=== PATIENT | male | born 1960 | race Caucasian/White ===

== ENCOUNTER 2020-04-16 14:11 | Emergency (ER) | payer BC, SELFPAY ==
[2020-04-16 14:58] VITALS: BP 160/90; PULSE 80; RESP 16; TEMP 36.8; O2SAT 98
--- NOTE | 2020-04-16 15:44 | ED_ITS ---
HPI - General Adult General Chief complaint: Skin/Abscess/Foreign Body Stated complaint: WOUND ON R FOREARM Time Seen by Provider: 04/16/20 15:15 Related Data Allergies Allergy/AdvReac Type Severity Reaction Status Date / Time AMOXICILLIN TRIHYDRATE Allergy Unknown ITCHING Uncoded 07/26/16 13:14 Review of Systems Review of Systems: All systems reviewed & are unremarkable except as noted in HPI and below Exam Narrative: Exam Narrative: GENERAL: Well-appearing, well-nourished, and in no acute distress. HEAD: Normocephalic, atraumatic. EYES: PERRLA and EOMI. EXTREMITIES: Normal range of motion. No edema. SKIN: Warm, dry, no rash. Pedunculated 1 cm lesion to the right forearm with central ulceration NEURO: No focal deficits. Alert and oriented x3. Neurovascularly intact PSYCH: Normal mood and affect. Course Course Emergency Course: Patient with skin lesion to the right forearm concerning for squamous cell carcinoma will be referred to dermatology plastic surgery and primary care for discussion of biopsy and excision Vital Signs Vital signs: Vital Signs Temperature 98.3 F 04/16/20 14:58 Pulse Rate 80 04/16/20 14:58 Respiratory Rate 16 04/16/20 14:58 Blood Pressure 160/90 H 04/16/20 14:58 Pulse Oximetry 98 04/16/20 14:58 Temperature 98.3 F 04/16/20 14:58 Pulse Rate 80 04/16/20 14:58 Respiratory Rate 16 04/16/20 14:58 Blood Pressure 160/90 H 04/16/20 14:58 Pulse Oximetry 98 04/16/20 14:58 Medical Decision Making MDM Narrative Medical decision making narrative: Patient with skin lesion will be referred to plastic surgery for discussion of biopsy to rule out cancer Vital Signs Vital Signs: Vital Signs Temperature 98.3 F 04/16/20 14:58 Pulse Rate 80 04/16/20 14:58 Respiratory Rate 16 04/16/20 14:58 Blood Pressure 160/90 H 04/16/20 14:58 Pulse Oximetry 98 04/16/20 14:58 Temperature 98.3 F 04/16/20 14:58 Pulse Rate 80 04/16/20 14:58 Respiratory Rate 16 04/16/20 14:58 Blood Pressure 160/90 H 04/16/20 14:58 Pulse Oximetry 98 04/16/20 14:58 Discharge Plan Discharge Clinical Impression: Wound, open, arm, forearm Patient Disposition: Home, Self-Care Condition: Stable Instructions: Antibiotic Form Additional Instructions: Follow-up with primary care and dermatology by phone first thing tomorrow to set up appointment for discussion of biopsy of the skin lesion on your forearm to rule out cancer as a cause Return if symptoms worsen or concerns or any increase in redness swelling pain or fever 100.5 Follow-up/Referrals: PHYSICIAN,JANITORIAL MAINTENANCE WORKER [Primary Care Provider] - Tristin Zabala MD [Physician] -
== END 2020-04-16 16:02 | disposition home or self-care (01) ==
PROVIDERS: Emergency Provider Emergency Medicine
DX: L98.9 Disorder of the skin and subcutaneous tissue, unspecified (principal)
CPT/HCPCS: 99282

== ENCOUNTER → 2020-04-24 15:30 | Outpatient (REF) | payer BC, SELFPAY | LOC: ANHLAB 15:30 | PROVIDERS: PCP Emergency Medicine; Visit Provider Nurse Practitioner | DX: D49.2 Neoplasm of unspecified behavior of bone, soft tissue, and skin (principal) | CPT/HCPCS: 88305 ==

== ENCOUNTER → 2020-06-16 09:11 | Outpatient (REF) | payer BC, SELFPAY | LOC: ANHLAB 09:11 | PROVIDERS: PCP Emergency Medicine; Visit Provider Nurse Practitioner | DX: C44.622 Squamous cell carcinoma of skin of right upper limb, including shoulder (principal) | CPT/HCPCS: 88305; 88331 ==

== ENCOUNTER 2020-09-09 23:03 | Emergency (ER) | payer SELFPAY ==
--- NOTE | ~2020-09-09 | CT_ITS ---
EXAMINATION: CT brain wo con INDICATION: Headache COMPARISON: 07/26/2016 TECHNIQUE: Standard unenhanced head CT. The dose-length product (DLP) was 681.00 mGy-cm. The mA was a djusted according to patient size. Iterative reconstruction technique was employed. FINDINGS: There is no intracranial hemorrhage, acute infarction, or abnormal mass lesion. The ventric les are normal. There is no abnormal mass effect or midline shift. The wright-white matter differentiat ion is normal. The basal cisterns are patent. Intracranial calcified cerebral atherosclerosis is note d. The orbits are normal. The paranasal sinuses, mastoids and calvarium are normal. IMPRESSION: 1. No acute intracranial abnormality. Reviewed, dictated and finalized at location [facility]. R BRICKLAYER
[2020-09-09 23:05] VITALS: BP 148/87; PULSE 72; RESP 16; TEMP 36.4; O2SAT 97
[2020-09-09 23:21] LABS: Basophils Absolute Auto 0.1 K/mm3 (0.0-0.1); Basophils Percent Auto 0.8 % (0.2-1.2); Eosinophils Absolute Auto 0.3 K/mm3 (0-0.3); Eosinophils Percent Auto 2.9 % (0-4.4); Hematocrit 45.6 % (42.0-52.0); Hemoglobin 15.4 g/dL (14.0-18.0); Immature Granulocyte Absolute 0.05 K/mm3 (0.00-0.031); Immature Granulocyte Percent A 0.5 % (0-0.5); Lymphocytes Absolute Auto 2.37 K/mm3 (0.9-3.2); Lymphocytes Percent Auto 25.8 % (18.3-44.2); Mean Corpuscular HGB Conc 33.8 g/dl (32-36); Mean Corpuscular Hemoglobin 35.1 pg (26-34); Mean Corpuscular Volume 103.9 fl (80-100); Mean Platelet Volume 9.9 fl (7.4-10.4); Monocytes Absolute Auto 0.8 K/mm3 (0.1-0.6); Neutrophils Absolute Auto 5.6 K/mm3 (1.3-6.7); Platelet Count Result 181 k/mm3 (150-375); Red Blood Count 4.39 M/mm3 (4.6-6.20); Red Cell Distribution Width 13.1 % (11.5-14.5); White Blood Count 9.2 K/mm3 (4.5-10.0)
[2020-09-09 23:34] LABS: Alanine Aminotransferase 20 U/L (4-50); Albumin Level 4.4 g/dL (3.5-5.1); Alkaline Phosphatase 86 U/L (38-126); Anion Gap 10 mmol/L (8-16); Aspartate Amino Transferase 31 U/L (17-59); Bilirubin,Total 0.2 mg/dL (0.2-1.3); Blood Urea Nitrogen 10 mg/dL (9-20); Calcium 9.2 mg/dL (8.4-10.2); Carbon Dioxide 22 mmol/L (22-30); Chloride 107 mmol/L (98-107); Estimated CRCL calculation 100 ml/min; Estimated Glomerular Filt Rate > 60; Glucose 103 mg/dL (75-110); Lipase 119 U/L (23-300); Potassium 3.8 mmol/L (3.4-5.0); Sodium 139 mmol/L (137-145)
[2020-09-10 00:31] VITALS: BP 154/95; PULSE 71; RESP 15; O2SAT 95
--- NOTE | 2020-09-10 00:40 | ED.DIZZY ---
HPI - Dizziness General Chief Complaint: Dizziness Stated Complaint: nausea and dizzy Time Seen by Provider: 09/10/20 00:29 History of Present Illness HPI Narrative: Dizziness since yesterday. Constant. Increasing in severity. Exacerbated by standing. Assovciated with nausea and vomiting. He says that he has had vertigo before and this is different. He also denies being light headed. He did have a few beers ealier, but this is not unusual. No weakness, numbness, confusion, CP, SOB. Related Data Home Medications Medication Instructions Recorded Confirmed lisinopril 20 mg tablet 20 mg PO DAILY tablet 04/24/20 Allergies Allergy/AdvReac Type Severity Reaction Status Date / Time AMOXICILLIN TRIHYDRATE Allergy Unknown ITCHING Uncoded 06/16/20 08:50 Review of Systems Constitutional: Constitutional: Denies chills, Denies fever(s) and Denies weakness Eyes: Eyes: Reports no additional eye complaints ENT: Reports dizziness and Denies sore throat Cardiovascular: Cardiovascular: Denies chest pain Respiratory: Respiratory: Denies dyspnea Gastrointestinal: Gastrointestinal: Denies abdominal pain, Denies diarrhea, Reports nausea and Reports vomiting Genitourinary: Genitourinary: Denies hematuria and Denies dysuria Musculoskeletal: Musculoskeletal: Denies back pain Neurologic: Reports dizziness and Denies syncope [facility] Past Medical History Medical History (Updated 09/10/20 @ 03:45 by Noé Dietrich MD) High blood pressure Squamous cell cancer of skin of right forearm Social History Social History Smoking status: Current every day smoker Tobacco type: cigarettes Alcohol intake: current Substance use: never Substance use type: does not use Exam Const: General: no acute distress and alert Nutritional Appearance: well nourished Orientation/consciousness: patient oriented x3 HENMT: Head: normal to inspection Ears: TM's normal bilaterally, EAC's normal and external ear abnormal Eyes: Conjunctivae: conjunctivae normal Pupils: Equal, round and reactive pupils present EOM: EOMs intact bilaterally Neck: Neck: normal visual inspection Resp: Effort & Inspection: normal respiratory effort Auscultation: clear to auscultation bilaterally, no rales, no rhonchi and no wheezes Cardio: Jugular venous distension: no JVD Rate: regular rate Rhythm: regular rhythm Heart sounds: no murmurs GI: Inspection: non-distended GI Palp: Yes Soft to palpation and No Tenderness to palpation present (GI) Skin: General skin exam: normal color Neuro: General: patient oriented x3, moves all extremities, no focal motor deficits and CN's II-XI intact bilaterally Cranial nerves: Yes Nystagmus present horizontal fast component to the right (mild) Speech: normal speech Gait exam (Neuro): Normal gait present Extrem: General: no edema Psych: Appearance: well kempt Affect: normal affect Course Vital Signs Vital signs: Vital Signs Temperature 36.4 C 09/09/20 23:05 Pulse Rate 72 09/09/20 23:05 Respiratory Rate 16 09/09/20 23:05 Blood Pressure 148/87 H 09/09/20 23:05 Pulse Oximetry 97 09/09/20 23:05 Temperature 36.4 C 09/09/20 23:05 Pulse Rate 104 H 09/10/20 02:46 Respiratory Rate 18 09/10/20 02:46 Blood Pressure 118/70 09/10/20 02:46 Pulse Oximetry 100 09/10/20 02:46 MDM - Dizziness Differential Diagnosis Differential diagnosis: Likely benign paroxysmal positional vertigo, cerebrovascular accident, transient cerebral ischemia and other (near syncope, orhtostatic hypotension) Medical Records Attestation: I reviewed the patient's medical records. Lab Data Attestation: I reviewed the patient's lab results. Result diagrams: 09/09/20 23:13 09/09/20 23:13 Labs: Lab Results 09/09/20 09/09/20 09/10/20 Range/Units 23:13 23:13 00:45 WBC 9.2 (4.5-10.0) K/mm3 RBC 4.39 L (4.6-6.20)
--- NOTE | 2020-09-10 00:48 | PC.NURSE ---
Pt to CT scan via stretcher.
[2020-09-10 00:58] LABS: Appearance Urine Clear (Clear); Bilirubin Urine Negative (Negative); Blood Urine Negative (Negative); Color Urine Yellow (Yellow); Glucose Urine UA Negative (Negative); Ketones Urine Trace mg/dL (Negative); Leukocyte Esterase Ur Negative LEU/UL (Negative); Nitrate Urine Negative (Negative); Protein Urine Negative (Negative); Specific Grav Ur 1.025 (1.001-1.035); Urobilinogen Urine 0.2 mg/dL (<2.0)
[2020-09-10 01:03] LABS: Bacteria Urine Trace /hpf; Mucus Urine Rare /lpf; RBC Urine 0-2 /hpf (0-2); Squamous Epithelial Cell Urine Rare /hpf (Few); WBC Urine 0-3 /hpf
[2020-09-10 01:05] LABS: Add Urine Microscopic? YES
[2020-09-10 01:10] VITALS: PULSE 64; RESP 19; O2SAT 95
[2020-09-10] MEDS: LORazepam INJ (*CRX) 2 MG/ML VIAL 0.5 MG IV PUSH (01:11)
[2020-09-10] MEDS: SODIUM CHLORIDE 0.9% IV 1,000 ML 999 ML IV CONT (01:11)
[2020-09-10] MEDS: ONDANSETRON INJ 4 MG/2 ML VIAL IV PUSH (01:11)
[2020-09-10 01:35] LABS: Ethanol < 10 mg/dL (<10)
[2020-09-10 01:54] VITALS: BP 137/79; PULSE 70; RESP 23; O2SAT 94
[2020-09-10 02:04] VITALS: BP 137/79; BP 148/83; PULSE 71; PULSE 75
[2020-09-10 02:05] VITALS: BP 135/85; PULSE 80
[2020-09-10 02:46] VITALS: BP 118/70; PULSE 104; RESP 18; O2SAT 100
== END 2020-09-10 02:47 | disposition home or self-care (01) ==
PROVIDERS: Emergency Medicine; Emergency Provider Emergency Medicine
DX: R42 Dizziness and giddiness (principal); I10 Essential (primary) hypertension; Z85.828 Personal history of other malignant neoplasm of skin
CPT/HCPCS: 36415; 70450; 80053; 80307; 81001; 83690; 85025; 96361; 96374; 96375; 99284; J2060; J2405; J7030

== ENCOUNTER → 2022-01-05 13:16 | Outpatient (REF) | payer BC, SELFPAY | LOC: ANHLAB 13:16 | PROVIDERS: PCP Family Medicine Sports Medicine; Visit Provider Nurse Practitioner | DX: D49.2 Neoplasm of unspecified behavior of bone, soft tissue, and skin (principal) | CPT/HCPCS: 88305 ==

== ENCOUNTER → 2022-02-03 07:29 | Outpatient (REF) | payer BC, SELFPAY | LOC: ANHLAB 07:29 | PROVIDERS: PCP Family Medicine Sports Medicine; Visit Provider Surgery Plastic and Reconstructive Surgery | DX: D04.72 Carcinoma in situ of skin of left lower limb, including hip (principal) | CPT/HCPCS: 88305 ==

== ENCOUNTER 2022-06-11 00:34 | Observation (INO) | payer BC, SELFPAY ==
--- NOTE | ~2022-06-11 | CT_ITS ---
EXAMINATION: CT facial & cervical spine wo DATE: 06/11/2022 02:54 INDICATION: Fall. Laceration above left eye. TECHNIQUE: Computed tomography (CT) of the facial bones and maxillofacial region and cervical spine w as performed without intravenous contrast. Automated exposure control and iterative reconstruction te chnique were employed. Exam dose: 642.66 mGy-cm total exam DLP. COMPARISON: None. FINDINGS: Left frontal cephalohematoma and laceration and small radiopaque foreign body. The orbital rims and montesinos, zygomatic arches, frontozygomatic sutures and maximum bones appear intact . Nasal plate is are intact. No retrobulbar hematoma. There is extensive periapical abscess formation at upper and lower teeth, with particularly extensive bone destruction of the alveolar ridge as a result. Normal alignment at the temporomandibular joints . No mandibular fracture. There is mild reversal cervical curvature, which may be due to muscle spasm. No fracture or dislocation or locked facet or prevertebral soft tissue swelling. Narrowing and spurring at the atlantodental articulation. Mild degenerative disc disease at C2-3. Moderate degenerative disc disease at C3-4. Severe degenerative disease at C4-5, C5-6 and C6-7, with associated mild retrolisthesis and prominent posterior spurring in particular at C5-6. There is uncovertebral joint spurring throughout the cervical spine, particularly severe at C4-5, C5- 6 and C6-7. There is fusion at the lateral C2-3 apophyseal joints. Prominent degenerative change at the apophysea l joints throughout the cervical spine. IMPRESSION: Mild left frontal cephalohematoma, laceration and small radiopaque foreign body No facial fracture Extensive upper and lower periapical abscesses with particularly extensive bone destruction of the al veolar ridges result Reversal cervical curvature which may be due to muscle spasm Extensive cervical spondylosis No fracture or dislocation or locked facet or prevertebral soft tissue swelling of the cervical spine Reviewed, dictated and finalized at [facility]. Reviewed, dictated and finalized at location [facility]. E DYER IMPRESSION: Mild left frontal cephalohematoma, laceration and small radiopaque foreign body No facial fracture Extensive upper and lower periapical abscesses with particularly extensive bone destruction of the alveolar ridges result Reversal cervical curvature which may be due to muscle spasm Extensive cervical spondylosis No fracture or dislocation or locked facet or prevertebral soft tissue swelling of the cervical spine
--- NOTE | ~2022-06-11 | MR_ITS ---
EXAMINATION: MR cervical spine wo con DATE: 06/11/2022 11:55 INDICATION: Central cord syndrome. TECHNIQUE: Magnetic resonance imaging (MRI) of the cervical spine was performed without intravenous c ontrast. Sequences included sagittal T2-weighted FSE, sagittal T2-weighted FS FSE, sagittal T1-weight ed FSE, axial MERGE, and axial T2-weighted FSE. COMPARISON: CT cervical spine 06/11/2022 FINDINGS: There is 9 degrees levocurvature of cervicothoracic spine. There is mild kyphosis of cervic al spine. 2 mm retrolisthesis of C4 on C5 and C5 on C6 and C6 on C7. Vertebral body heights are tosin l. There is severely decreased disc height at C4-C5, C5-C6, and C6-C7. There is increased T2-weighted signal intensity in the spinal cord at C4-C5 and C5-C6, consistent with myelomalacia. The following disc levels are specifically discussed: C2-C3: The disc does not extend beyond the endplate margin. There is moderate right and mild left unc overtebral joint hypertrophy. There is ankylosis of right facet joint severe hypertrophy. There is mo derate left facet joint osteoarthritis. There is mild right neural foraminal stenosis. There is no ce ntral canal stenosis. C3-C4: The disc is bulging. There is severe bilateral uncovertebral joint osteoarthritis. There is se isael bilateral facet joint osteoarthritis. There is moderate bilateral neural foraminal stenosis. The re is mild central canal stenosis with ventral indentation of the spinal cord. C4-C5: The disc is bulging. There is severe bilateral uncovertebral joint osteoarthritis. There is se isael bilateral facet joint osteoarthritis. There is moderate bilateral neural foraminal stenosis. The re is severe central canal stenosis with ventral and dorsal indentation of the spinal cord and increa sed signal in the cord. C5-C6: The disc is bulging. There is severe bilateral uncovertebral joint osteoarthritis. There is se isael right and moderate left facet joint osteoarthritis. There is moderate bilateral neural foraminal stenosis. There is severe central canal stenosis with ventral and dorsal indentation of the spinal c ord and increased signal in the cord. C6-C7: The disc is bulging. There is moderate right and severe left uncovertebral joint osteoarthriti s. There is moderate bilateral facet joint osteoarthritis. There is mild right and moderate left neur al foraminal stenosis. There is mild central canal stenosis. C7-T1: There is a central extrusion. There is no uncovertebral joint osteoarthritis. There is severe bilateral facet joint osteoarthritis. There is mild right neural foraminal stenosis. There is no cent ral canal stenosis. IMPRESSION: 1. Myelomalacia at C4-C5 and C5-C6. 2. Severe cervical spondylosis. Reviewed, dictated and finalized at location E. E FACILITATOR
--- NOTE | ~2022-06-11 | CT_ITS ---
EXAMINATION: CT brain wo con DATE: 06/11/2022 02:38 INDICATION: Fall. Head injury. TECHNIQUE: Computed tomography (CT) of the head was performed without intravenous contrast. The mA wa s adjusted according to patient size. Iterative reconstruction technique was employed. Exam dose: 68 1.00 mGy-cm total exam DLP. COMPARISON: 09/10/2020 CT brain FINDINGS: Bilateral carotid siphon internal carotid artery calcifications. No intracranial mass lesio n or hemorrhage or cerebrovascular accident is evident. No midline shift or mass effects. No subdural or epidural hematoma. Very small radiopaque foreign body and mild frontal scalp soft tissue swelling and minimal subcutaneo us emphysema consistent with laceration. No skull fracture is evident. Extensive periapical abscesses bone destruction of the alveolar ridge at multiple sites. Minimal mucoperiosteal thickening of the paranasal sinuses. Mastoid air cells are normally developed and aerated. IMPRESSION: Cerebral atherosclerosis No acute intracranial abnormality Extensive alveolar bone destruction due to multiple periapical abscesses Reviewed, dictated and finalized at [facility]. Reviewed, dictated and finalized at location B. COOLER
--- NOTE | ~2022-06-11 | US_ITS ---
US right upper quadrant INDICATION: PROCEDURE: Realtime right upper abdominal ultrasound. COMPARISON: No prior studies for comparison. FINDINGS: The pancreas is normal without focal mass or pancreatic ductal dilation. Liver echotexture is normal without focal mass or intrahepatic biliary dilatation. There is normal directional flow i n the portal vein. The gallbladder is normal without stones, gallbladder wall thickening or pericholecystic fluid. Comm on bile duct measures 3 mm. No sonographic Saldaña's sign. IMPRESSION: 1: Normal limited abdominal ultrasound. Reviewed, dictated and finalized at location A. FABRIC KNITTER
[2022-06-11 00:35] VITALS: BP 116/66; PULSE 71; RESP 18; TEMP 36.3; O2SAT 98
--- NOTE | 2022-06-11 01:53 | ED.GENADULT ---
HPI - General Adult General Chief complaint: Fall Stated complaint: fall Time Seen by Provider: 06/11/22 01:36 History of Present Illness HPI narrative: This is a 61-year-old male with history of alcohol use disorder presenting to ED after a fall. Patient drank his typical 8 beers tonight and then had an unwitnessed fall that he does not remember. He struck his forehead on something. This time the patient chief complaint is laceration of his left eye as well as the inability to move either of his hands. Patient denies use of blood thinners, denies any other focal neural deficits, persistent nausea or vomiting. Related Data Home Medications Medication Instructions Recorded Confirmed multivitamin 1 tablet PO DAILY 04/06/22 04/06/22 Allergies Allergy/AdvReac Type Severity Reaction Status Date / Time AMOXICILLIN TRIHYDRATE Allergy Unknown ITCHING Uncoded 02/15/22 08:18 Review of Systems Review of Systems: CONSTITUTIONAL: Denies night sweats. EYES: No eye pain ENT: Denies rhinorrhea CARDIOVASCULAR: Denies palpitations RESPIRATORY: Denies hemoptysis GASTROINTESTINAL: Denies hematemesis GENITOURINARY: Denies hematuria. SKIN: Denies rash MUSCULOSKELETAL: Denies myalgia. NEUROLOGIC: Denies weakness. PSYCHIATRIC: Denies delusions PMFSH Past Medical History Medical History (Updated 06/11/22 @ 05:12 by Iraj Corrigan MD) BMI 25.0-25.9,adult Cervicalgia Encounter to establish care High blood pressure Hypertension Personal history of colonic polyps Squamous cell cancer of skin of right forearm Tobacco abuse Family History Family History (Updated 03/18/22 @ 10:24 by Arely Cody [facility]) Mother Breast cancer Social History Social History (Updated 04/06/22 @ 09:07 by Tracy Castro MA) Smoking packs per day: 1 Smoking cigarettes per day: 20.0 Smoking status: Current every day smoker Tobacco type: cigarettes Alcohol intake: current Drinks per week: 20 Alcohol use details: Beer Substance use: never Substance use type: does not use Exam Narrative: APPEARANCE: No apparent distress. Patient is A&O x3, smells of alcohol Head: 4 cm laceration over the left eye EYES: EOMI, pupils 3 mm equal and reactive NOSE: Atraumatic NECK: Trachea midline RESPIRATORY: No increased rate of breathing , clear to auscultation bilaterally CARDIOVASCULAR: RRR, ABDOMINAL: Non-distended MUSCULOSKELETAl: No obvious deformities NEURO: Alert. Cranial nerves 2-12 grossly intact. 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 Flexion and extension at the elbow and shoulder is intact. Patient able to dorsiflex his wrist. hot/cold sensation is intact. SKIN:: Warm, dry. Normal color PSYCHIATRIC: Normal affect Course Vital Signs Vital signs: Vital Signs Temperature 97.4 F L 06/11/22 00:35 Pulse Rate 71 06/11/22 00:35 Respiratory Rate 18 06/11/22 00:35 Blood Pressure 116/66 06/11/22 00:35 Pulse Oximetry 98 06/11/22 00:35 Oxygen Delivery Room Air 06/11/22 00:35 Temperature 97.4 F L 06/11/22 00:35 Pulse Rate 71 06/11/22 00:35 Respiratory Rate 18 06/11/22 00:35 Blood Pressure 116/66 06/11/22 00:35 Pulse Oximetry 98 06/11/22 00:35 Oxygen Delivery Room Air 06/11/22 00:35 Procedures Laceration Laceration 1: Date: 06/11/22 Site: face Side (If applicable): left Size (cm): 4 Description: linear Depth: simple, single layer Local Anesthetic: lidocaine 1% Pre-repair: wound explored and irrigated ====== Skin Level ====== Skin layer closed with: nylon Size (cm): 5-0 Number of sutures: 8 ====== Subcutaneous Layer ====== ====== Muscle Layer ====== ====== Tendon Layer ====== Dressing: Removed in 5 days Medical Decision Making [facility] Narrative Medical decision making narrative: This is a 61-year-old male with a fall. Patient has lace
[2022-06-11 02:12] LABS: Basophils Percent Auto 0.7 % (0.2-1.2); Eosinophils Absolute Auto 0.2 K/mm3 (0-0.3); Eosinophils Percent Auto 3.2 % (0-4.4); Hematocrit 43.8 % (42.0-52.0); Immature Granulocyte Absolute 0.03 K/mm3 (0.00-0.031); Immature Granulocyte Percent A 0.5 % (0-0.5); Lymphocytes Absolute Auto 1.57 K/mm3 (0.9-3.2); Mean Corpuscular HGB Conc 34.2 g/dl (32-36); Mean Corpuscular Hemoglobin 35.2 pg (26-34); Mean Corpuscular Volume 102.8 fl (80-100); Mean Platelet Volume 9.6 fl (7.4-10.4); Monocytes Absolute Auto 0.5 K/mm3 (0.1-0.6); Monocytes Percent Auto 9.6 % (2.6-8.5); Neutrophils Absolute Auto 3.3 K/mm3 (1.3-6.7); Platelet Count Result 162 k/mm3 (150-375); Red Blood Count 4.26 M/mm3 (4.6-6.20); Red Cell Distribution Width 13.2 % (11.5-14.5); White Blood Count 5.6 K/mm3 (4.5-10.0)
[2022-06-11 02:22] LABS: INR 1.1; Prothrombin Time 14.1 Seconds (11.1-14.7)
[2022-06-11 02:23] LABS: Partial Thromboplastin Time 41.9 SECONDS (22.3-36.8)
[2022-06-11 02:24] LABS: Alanine Aminotransferase 28 U/L (6-50); Albumin Level 4.6 g/dL (3.5-5.1); Alkaline Phosphatase 91 U/L (38-126); Anion Gap 12 mmol/L (8-16); Aspartate Amino Transferase 45 U/L (17-59); Bilirubin,Total 0.4 mg/dL (0.2-1.3); Blood Urea Nitrogen 10 mg/dL (9-20); Calcium 8.8 mg/dL (8.4-10.2); Carbon Dioxide 20 mmol/L (22-30); Chloride 104 mmol/L (98-107); Creatine Kinase 87 U/L (55-170); Estimated CRCL calculation 99 ml/min; Estimated Glomerular Filt Rate > 60; Glucose 79 mg/dL (65-110); Potassium 4.1 mmol/L (3.4-5.0); Sodium 136 mmol/L (137-145)
[2022-06-11 02:41] LABS: Ethanol 171 mg/dL (<10)
[2022-06-11] MEDS: TETANUS,DIPHTHERIA,AC PERTUSSIS ADULT (0.5 ML) BOOSTRIX IM (02:49)
[2022-06-11] MEDS: ACETAMINOPHEN 500 MG TABLET 1000 MG PO (02:50)
[2022-06-11 02:52] LABS: Influenza A QL RT-PCR Negative (Negative); Influenza B QL RT-PCR Negative (Negative); SARS-CoV-2 RNA PCR Negative
[2022-06-11 03:04] LABS: Lipase 129 U/L (23-300)
--- NOTE | 2022-06-11 07:43 | ADMGEN ---
This patient, Evans Castellon, was admitted to [facility] Surg Room 307-01. Patient/family oriented to hospital policies and general routines including ID bracelet, bed and alarms, visiting hours, pain management, procedures, bathroom and other care routines, personal items, smoking policy, room service/diet, and visiting hours. Information on how to activate the Rapid Response Team has been discussed. Patient/Family are encouraged to report perceived risks to care and to ask questions if they do not understand what they are told or what they should do.
--- NOTE | 2022-06-11 10:14 | PM.IMHP ---
H&P: HPI History of Present Illness Date/Time: 06/11/22 10:14 Chief Complaint: Fall Narrative: 61yo male with hx of tobacco abuse, alcohol abuse and HTN here for fall with head injury and bilateral hand weakness. Patient does not fall frequently but did have 1 fall earlier this year. He does have bilateral upper arm tingling and pain but no weakness that began about 6-8 months ago. He had cervical x-ray imaging which showed osteoarthritis but has not had MRI. Patient drinks 6-8 beers per day and sometimes more on the weekends. Patient has poor memory of the events leading up to his hospitalization but does provided the following information. Sometime later in the evening around 11:30pm, he states he tripped over a high chair. He has no memory of falling. He did he hit his left side of his forehead. He denies any chest pain shortness of breath or palpitations prior to the fall that he recalls. He was found by his who called EMS. He complains of hand and upper extremity weakness bilaterally. He denies any lower extremity weakness. He has not walked since the fall. He had trouble picking up a ballpoint pen. No seizures or strokes. Denies headache but has soreness in the left forehead area related to the trauma. Denies any fever, chills, vision changes, mouth pain, nausea, vomiting, abdominal pain, back pain. No numbness or tingling in his feet. Patient was brought to the emergency room for evaluation. In the ED, patient was hemodynamically stable. Alcohol level was 171. Macrocytosis and serum bicarb of 20 otherwise labs were unrevealing. Lipase was normal. Influenza and COVID swab was negative. Head CT showed no acute intracranial abnormalities. Facial CT showed left frontal cephalohematoma and small radiopaque foreign body. He had extensive upper and lower periapical abscesses with extensive bony destruction. He had extensive cervical spondylosis but no fracture dislocation. Please see report for further details. He was given DTaP vaccine and a dose of Tylenol. He was admitted for further care. Review of Systems Review of Systems: All systems reviewed & are unremarkable except as noted in HPI and below PMFSH Past Medical History Medical History (Updated 06/11/22 @ 11:04 by Ronni Arellano MD) BMI 25.0-25.9,adult Cervicalgia Encounter to establish care High blood pressure Hypertension Personal history of colonic polyps Squamous cell cancer of skin of right forearm Tobacco abuse Surgical History Surgical History (Updated 06/11/22 @ 10:16 by Ronni Arellano MD) Hx of appendectomy 2000 Family History Family History Mother Breast cancer Social History Social History (Updated 06/11/22 @ 10:17 by Ronni Arellano MD) Social History: Patient lives at home with his . His granddaughter and 2 great grand children also live with him. He uses marijuana on occasion and last used marijuana the day before his fall. He smoked a pack a day since age 16. He quit on occasion but had significant weight gain. He is a full code. He nominates his to be the individual would make medical decisions for him if he is unable. Smoking packs per day: 1 Smoking cigarettes per day: 20.0 Years smoked: 40 Smoking pack-years: 40.00 Smoking status: Current every day smoker Tobacco type: cigarettes Alcohol intake: current Drinks per week: 40 Alcohol use details: Beer Substance use: current Substance use type: marijuana Lack of Transportation: No Lack of Food: Never True Current Housing: I Have Housing Concerned About Future Housing: No Difficulty Paying Gas/Electric Bills: No Difficulty Paying for Meds: No Currently Unemployed: No Education: Trade/Vocational Certificate Difficulty w/ Childcare or Family Care: No Spiritual care concerns: No Meds Home Medications and Allergies Home Medications
[2022-06-11] MEDS: HYDROcodone/acetaminophen (*CRX) 5-325 MG TABLET 1 TAB PO ×2 (12:57→21:22)
[2022-06-11] MEDS: LACTATED RINGERS 1,000 ML 125 ML IV CONT ×2 (12:58→15:52)
[2022-06-11 13:54] VITALS: BP 149/84; PULSE 71; RESP 20; TEMP 36.7; O2SAT 97
--- NOTE | 2022-06-11 15:24 | WPDNEUROSGCN ---
Assessment and Plan Assessment and plan (1) Central cord syndrome: Code(s): S14.129A - Central cord syndrome at unspecified level of cervical spinal cord, initial encounter Status: Acute Assessment and Plan: Evans Castellon is a very pleasant 61 year old male who presents after a fall in the setting of cervical stenosis with symptoms in his hands including decreased dexterity and pain in his hands - clinic symptoms are consistent with central cord syndrome in the setting of spinal stenosis. The patinet is clinically stable but does have a progression of neurological symptoms when compared with his radicular complaints over the past 6-8 months. The patient has no evidence of fracture of Csipne on CT. I have clnically cleared his cervical spine as he has full range of motion. However, we have had a discussion that if his symptoms do not improve over next 2-3 weeks, we will likely need to consider surgical intervention. The patient expresses understanding. His clinical history is complicated by heavy alcohol use as well as poor dentition. I agree with hospitalists team plan for abx and treatment of dental caries. Patient would benefit from outpatient dentistry follow up. In addition, his heavy alcohol use is likely a factor. Would be helpful to establish whether elevated PTT is related to true bleeding dysfunction secondary to chronic alcohol use as this would impact overall safety in terms of consideration of surgery. From a management perspective I am comfortable with discharge and follow up with neurosurgical clinic in 2-3 weeks. We will contact patient to be seen. Agree with any further hospital evaluation of medical problems prior to discharge PMFSH Past Medical History Medical History (Updated 06/11/22 @ 11:04 by Ronni Arellano MD) BMI 25.0-25.9,adult Cervicalgia Encounter to establish care High blood pressure Hypertension Personal history of colonic polyps Squamous cell cancer of skin of right forearm Tobacco abuse Surgical History Surgical History (Updated 06/11/22 @ 10:16 by Ronni Arellano MD) Hx of appendectomy 2000 Family History Family History Mother Breast cancer Social History Social History (Updated 06/11/22 @ 10:17 by Ronni Arellano MD) Social History: Patient lives at home with his . His granddaughter and 2 great grand children also live with him. He uses marijuana on occasion and last used marijuana the day before his fall. He smoked a pack a day since age 16. He quit on occasion but had significant weight gain. He is a full code. He nominates his to be the individual would make medical decisions for him if he is unable. Smoking packs per day: 1 Smoking cigarettes per day: 20.0 Years smoked: 40 Smoking pack-years: 40.00 Smoking status: Current every day smoker Tobacco type: cigarettes Alcohol intake: current Drinks per week: 40 Alcohol use details: Beer Substance use: current Substance use type: marijuana Lack of Transportation: No Lack of Food: Never True Current Housing: I Have Housing Concerned About Future Housing: No Difficulty Paying Gas/Electric Bills: No Difficulty Paying for Meds: No Currently Unemployed: No Education: Trade/Vocational Certificate Difficulty w/ Childcare or Family Care: No Spiritual care concerns: No Meds Home Medications and Allergies Home Medications Medication Instructions Recorded Confirmed Type lisinopril 20 mg tablet 20 mg PO DAILY #90 tabs 04/06/22 06/11/22 Rx multivitamin 1 tablet PO DAILY 04/06/22 06/11/22 History Allergies Allergy/AdvReac Type Severity Reaction Status Date / Time AMOXICILLIN TRIHYDRATE Allergy Unknown ITCHING Uncoded 06/11/22 07:43 Vital Signs Vital Signs - 24 hr 06/11/22 00:35 06/11/22 13:54 Temperature 97.4 F L 98.0 F Pulse Rate 71 71 Respiratory Rate 18 20 Blood Pressure 116/6
[2022-06-11] MEDS: CLINDAMYCIN HCL 150 MG CAP 300 MG PO ×2 (15:56→21:23)
[2022-06-11] MEDS: FOLIC ACID 1 MG TABLET PO (15:56)
[2022-06-11] MEDS: THIAMINE HCL 100 MG TABLET PO (15:56)
[2022-06-11] MEDS: CHLORHEXIDINE GLUCONATE 0.12% ORAL RINSE 473 ML BTL (*BKC) 15 ML SWISH/SPIT (15:58)
[2022-06-11 18:34] LABS: Glucose Point of Care 98 mg/dl (65-105)
[2022-06-11 22:00] VITALS: BP 161/89; PULSE 74; RESP 18; TEMP 37.5; O2SAT 97
[2022-06-12] MEDS: LACTATED RINGERS 1,000 ML 125 ML IV CONT (02:36)
[2022-06-12] MEDS: CLINDAMYCIN HCL 150 MG CAP 300 MG PO ×2 (05:47→15:08)
[2022-06-12 06:00] VITALS: BP 169/68; PULSE 62; RESP 18; TEMP 36.2; O2SAT 96
[2022-06-12 08:14] LABS: Alanine Aminotransferase 28 U/L (6-50); Albumin Level 4.2 g/dL (3.5-5.1); Alkaline Phosphatase 102 U/L (38-126); Anion Gap 8 mmol/L (8-16); Aspartate Amino Transferase 44 U/L (17-59); Bilirubin,Total 0.6 mg/dL (0.2-1.3); Blood Urea Nitrogen 12 mg/dL (9-20); Calcium 9.1 mg/dL (8.4-10.2); Carbon Dioxide 23 mmol/L (22-30); Chloride 106 mmol/L (98-107); Estimated CRCL calculation 99 ml/min; Estimated Glomerular Filt Rate > 60; Glucose 98 mg/dL (65-110); Potassium 4.4 mmol/L (3.4-5.0); Sodium 137 mmol/L (137-145)
[2022-06-12 09:16] LABS: Folic Acid > 20.0 ng/mL (2.76->20)
[2022-06-12] MEDS: CHLORHEXIDINE GLUCONATE 0.12% ORAL RINSE 473 ML BTL (*BKC) 15 ML SWISH/SPIT (09:39)
[2022-06-12] MEDS: MULTIVITAMINS THERAPEUTIC TAB (*BKC) 1 TABLET PO (09:41)
[2022-06-12] MEDS: FOLIC ACID 1 MG TABLET PO (09:42)
[2022-06-12] MEDS: THIAMINE HCL 100 MG TABLET PO (09:42)
[2022-06-12 11:53] LABS: Glucose Point of Care 165 mg/dl (65-105)
--- NOTE | 2022-06-12 13:15 | PM.DS ---
DS: Admitting Diagnosis Discharge Date 06/12/22 Admitting Diagnosis Fall with head injury DS: Discharge Diagnosis Discharge Diagnosis (1) Central cord syndrome: Code(s): S14.129A - Central cord syndrome at unspecified level of cervical spinal cord, initial encounter Status: Acute (2) ETOH abuse: Code(s): F10.10 - Alcohol abuse, uncomplicated Status: Acute (3) Tobacco abuse: Code(s): Z72.0 - Tobacco use Status: Acute (4) Hypertension: Code(s): I10 - Essential (primary) hypertension Status: Acute (5) Laceration: Status: Acute (6) Periapical abscess: Code(s): K04.7 - Periapical abscess without sinus Status: Acute DS: Summary Hospital Course Reason for hospitalization: 61yo male with hx of tobacco abuse, alcohol abuse and HTN here for fall with head injury and bilateral hand weakness.? Please see H&P for details Hospital Course: Patient had a fall with head injury and was brought to the emergency room for evaluation. In the ED, patient was hemodynamically stable.? Alcohol level was 171.? Macrocytosis, PTT 42 and serum bicarb of 20 otherwise labs were unrevealing.? Lipase was normal.? Influenza and COVID swab was negative.? Head CT showed no acute intracranial abnormalities.? Facial CT showed left frontal cephalohematoma and small radiopaque foreign body.? He had extensive upper and lower periapical abscesses with extensive bony destruction.? He had extensive cervical spondylosis but no fracture dislocation.? Please see report for further details.? He was given DTaP vaccine and a dose of Tylenol.? He was admitted for further care. Cervical spine MRI showing myelomalacia C4-5 and C5-6 and severe cervical spondylosis. Neuro surgery was consulted. Patient had evidence of central cord syndrome in the setting of spinal stenosis. No evidence of fracture. Cervical spine collar was removed. Neurosurgery informed the patient that if he does not improve over the next 2-3 weeks, he will likely need surgical intervention. Right upper quadrant ultrasound does not show cirrhosis. Patient was educated about the benefits of abstaining from drug use, tobacco use and alcohol use. We started antibiotics the form of clindamycin and he was encouraged to follow-up with a dentist in the next week. Patient was instructed to have his sutures removed in 7-10 days. Patient overall did well to be discharged home on 06/12/2022. Status at Discharge Cognitive/behavioral status at discharge: stable Time Spent with Patient Time attestation: Total time spent providing and/or coordinating discharge services:32 minutes Time spent: Greater than 30 minutes Exam Narrative: AF 97.2 169/68 62 18 96%ra Gen - NARD HEENT - left forehead laceration Chest - CTA bilaterally, nml RR CV - RRR. S1-S2. Abd - soft. NT/ND. Ext - no pedal edema Neuro - dental mold maker slightly better. Psych - normal mood and affect. Skin - warm and dry. DS: Data Data Completed and Pending Labs on day of discharge: Labs from last 24 hours 06/12/22 06/12/22 06/11/22 11:50 06:56 18:31 Sodium 137 Potassium 4.4 Chloride 106 Carbon Dioxide 23 Anion Gap 8 BUN 12 Creatinine 0.70 Estim Creat Clear Calc 99 Estimated GFR > 60 Glucose 98 POC Capillary Glucose 165 H 98 Calcium 9.1 Total Bilirubin 0.6 AST 44 ALT 28 Alkaline Phosphatase 102 Total Protein 7.0 Albumin 4.2 Vitamin B12 591.0 Folate > 20.0 H Discharge Plan Discharge Attending physician on discharge: Ronni Arellano Consulting providers: Shara Hobbs Discharging Clinician: Ronni Arellano Anticipated Discharge Date/Time: 06/12/22 13:29 Patient Disposition: Home, Self-Care Activity: as tolerated Diet: heart healthy Discharge Instructions: Avoid all products that contain nicotine Avoid all products that contain alcohol Stop using mar
[2022-06-12 14:00] VITALS: BP 142/83; PULSE 74; RESP 20; TEMP 36.1; O2SAT 97
== END 2022-06-12 16:15 | disposition home or self-care (01) ==
LOC: ANHED 05:12 → ANH3MEDSUR 12:27
PROVIDERS: Internal Medicine; Admitting Provider Internal Medicine; Emergency Provider Emergency Medicine; PCP Nurse Practitioner Family; Visit Provider Internal Medicine
DX: S14.129A Central cord syndrome at unspecified level of cervical spinal cord, initial encounter (principal); F10.129 Alcohol abuse with intoxication, unspecified; Y90.6 Blood alcohol level of 120-199 mg/100 ml; S01.112A Laceration without foreign body of left eyelid and periocular area, initial encounter; W19.XXXA Unspecified fall, initial encounter; Z23 Encounter for immunization; I10 Essential (primary) hypertension; K04.7 Periapical abscess without sinus; Z20.822 Contact with and (suspected) exposure to COVID-19; G95.89 Other specified diseases of spinal cord; M47.812 Spondylosis without myelopathy or radiculopathy, cervical region; I67.2 Cerebral atherosclerosis; M89.8X8 Other specified disorders of bone, other site; F17.210 Nicotine dependence, cigarettes, uncomplicated; F12.90 Cannabis use, unspecified, uncomplicated; Z79.899 Other long term (current) drug therapy
CPT/HCPCS: 12013; 36415; 70450; 70486; 72125; 72141; 76705; 80053; 80307; 82550; 82607; 82746; 82948; 83690; 83735; 85025; 85610; 85730; 87636; 90471; 90715; 96360; 96361; 99285; A4248; A9270; G0378; J7120

== ENCOUNTER 2023-11-22 14:58 | Outpatient (CLI) | payer MEDICARE, SELFPAY ==
--- NOTE | ~2023-11-22 | CT_ITS ---
EXAMINATION: CT lung screening DATE: 11/22/2023 15:32 INDICATION: Z87.891 - Personal history of nicotine dependence TECHNIQUE: Computed tomography (CT) of the chest was performed without intravenous contrast. Addition al 3D reconstructions utilizing coronal maximum intensity projection (MIP) were performed. Automated exposure control and iterative reconstruction technique were employed. The dose-length product was 99 .35 mGy-cm. COMPARISON: None FINDINGS: Mild emphysema. Minimal predominantly dependent atelectasis at the bilateral lung bases. Mild linear scarring at the right apex. 2 mm likely para fissural nodule along the right minor fissure. No other suspicious pulmonary nodules, pneumonia, pulmonary edema or pleural effusion. Heart size is normal. A therosclerotic coronary artery calcification. Thoracic aorta is normal in caliber. No pathologically enlarged thoracic lymphadenopathy. Visualized upper abdomen is unremarkable. Mild thoracic dextrocurv ature with mild to moderate spondylosis and bridging osteophytes at multiple levels consistent with d iffuse idiopathic skeletal hyperostosis (DISH). IMPRESSION: 1. Lung-RADS category 2: Benign appearance or behavior. Continue annual screening with noncontrast lo w-dose chest CT in 12 months. Reviewed, dictated and finalized at location A. IMPRESSION: 1. Lung-RADS category 2: Benign appearance or behavior. Continue annual screeni ng with noncontrast low-dose chest CT in 12 months.
== END 2023-11-22 14:59 | disposition home or self-care (01) ==
PROVIDERS: PCP Nurse Practitioner Family; Visit Provider Nurse Practitioner Family
DX: Z12.2 Encounter for screening for malignant neoplasm of respiratory organs (principal); Z87.891 Personal history of nicotine dependence
CPT/HCPCS: 71271